=== PATIENT | male | born 1935 | race Caucasian/White ===

== ENCOUNTER 2016-11-27 12:30 | Emergency (ER) | payer MEDICARE, OTHER ==
[2016-02-13 12:11] VITALS: BMI 35.1
[~2016-11-27 12:30] MED LIST: ACCUPRIL40 MG PO; ASPIRIN325 MG PO; CITRUCEL500 MG; COREG 3.1253.125 MG PO; CRESTOR40 MG PO; FISH OIL 1,2001 CAP; FUROSEMIDE40 MG PO; ISOSORBIDE MONO30 M1 PO; MIRALAX17 GM PO; NORVASC10 MG PO; OMEPRAZOLE40 MG PO; RESTORIL15 MG PO; TYLENOL PM1 TAB PO
[2016-11-27 13:33] LABS: BASOPHILS 1.5 % (0-2); EOSINOPHILS 5.3 % (0-7); HEMATOCRIT 40.3 % (42.0-54.0); HEMOGLOBIN 13.1 g/dL (13.5-17.5); IMMATURE GRANULOCYTES 0.2 % (0-5); LYMPHOCYTES 27.4 % (15-50); MCH 28.7 pg (26.0-34.0); MCHC 32.5 g/dL (31.0-37.0); MCV 88.2 fL (80.0-100.0); MEAN PLATELET VOLUME 10.5 fL (7.4-10.4); MONOCYTES 9.7 % (2-11); NEUTROPHILS 55.9 % (40-80); PLATELET COUNT 163 10x3/uL (130-400); RBC 4.57 10x6/uL (4.20-6.10); RDW 14.5 % (11.5-14.5); WBC 5.4 10x3/uL (4.8-10.8)
[2016-11-27 14:05] LABS: ALBUMIN 3.6 g/dL (3.4-5.0); ALKALINE PHOSPHATASE 78 U/L (46-116); ALT (SGPT) 35 U/L (10-68); BILIRUBIN - TOTAL 0.35 mg/dL (0.2-1.3); CALC OSMOLALITY 281 mosm/kg (275-300); CALCIUM 8.6 mg/dL (8.5-10.1); CARBON DIOXIDE 27.8 mmol/L (21.0-32.0); CHLORIDE - SERUM 106 mmol/L (98-107); CREATININE - SERUM 0.9 mg/dL (0.6-1.3); GLUCOSE 112 mg/dL (74-106); SODIUM 140 mmol/L (136-145); UREA NITROGEN 18 mg/dL (7-18); eGFR NON AFRICAN AMERICAN 86 mL/min (90-120)
[2016-11-27 14:11] LABS: APTT 30.8 SECONDS (22.8-39.4); INR 0.95 (0.85-1.17); PROTIME 12.5 SECONDS (11.6-15.0)
== END 2016-11-27 15:53 | disposition home or self-care (01) ==
LOC: D.ER 12:30
PROVIDERS: Emergency Medicine
DX: M79.605 Pain in left leg (principal); Z95.1 Presence of aortocoronary bypass graft; I10 Essential (primary) hypertension; K58.9 Irritable bowel syndrome, unspecified

== ENCOUNTER 2016-12-09 10:49 | Emergency (ER) | payer MEDICARE, OTHER ==
[2016-02-13 12:11] VITALS: BMI 35.1
[2016-12-09 12:55] LABS: BASOPHILS 1.4 % (0-2); EOSINOPHILS 4.5 % (0-7); HEMATOCRIT 40.9 % (42.0-54.0); HEMOGLOBIN 13.1 g/dL (13.5-17.5); IMMATURE GRANULOCYTES 0.2 % (0-5); LYMPHOCYTES 27.9 % (15-50); MCH 28.4 pg (26.0-34.0); MCV 88.7 fL (80.0-100.0); MEAN PLATELET VOLUME 9.7 fL (7.4-10.4); PLATELET COUNT 158 10x3/uL (130-400); RBC 4.61 10x6/uL (4.20-6.10); RDW 14.3 % (11.5-14.5); WBC 5.6 10x3/uL (4.8-10.8)
[2016-12-09 13:05] LABS: CALC OSMOLALITY 282 mosm/kg (275-300); CALCIUM 8.4 mg/dL (8.5-10.1); CARBON DIOXIDE 28.5 mmol/L (21.0-32.0); CHLORIDE - SERUM 104 mmol/L (98-107); CREATINE KINASE 63 UL (21-232); CREATININE - SERUM 0.8 mg/dL (0.6-1.3); GLUCOSE 115 mg/dL (74-106); POTASSIUM - SERUM 4.1 mmol/L (3.5-5.1); SODIUM 141 mmol/L (136-145); UREA NITROGEN 16 mg/dL (7-18); eGFR NON AFRICAN AMERICAN > 90 mL/min (90-120)
[2016-12-09 13:06] LABS: APTT 32.1 SECONDS (22.8-39.4); INR 1.02 (0.85-1.17); PROTIME 13.2 SECONDS (11.6-15.0); TROPONIN-I < 0.017 ng/mL (0.000-0.060)
[2016-12-09 13:07] LABS: D-DIMER-QUANTITATIVE 0.72 ug/mLFEU (0.20-0.54)
== END 2016-12-09 14:48 | disposition left against medical advice (07) ==
LOC: D.ER 10:49
PROVIDERS: Nurse Practitioner Acute Care
DX: M25.512 Pain in left shoulder (principal); Z95.1 Presence of aortocoronary bypass graft; I10 Essential (primary) hypertension